=== PATIENT | female | born 1995 | race Two or more races ===

== ENCOUNTER 2023-03-18 19:31 | Emergency (ER) | payer OTHER ==
[~2023-03-18] VITALS: Ht 170.2 cm; Wt 79.8 kg
[~2023-03-18 19:31] MED LIST: ZITHROMAX TRI-500 MG PO
[2023-03-18] MEDS ORDERED: DUI500 PO (22:38)
== END 2023-03-18 22:54 | disposition home or self-care (01) ==
LOC: ER 19:31 → EMR PED 19:32 → ER 22:54
DX: H66.92 Otitis media, unspecified, left ear (principal); H61.22 Impacted cerumen, left ear